=== PATIENT | male | born 1940 | race Asian ===

== ENCOUNTER 2019-06-02 18:10 | Emergency (ER) | payer MEDICARE, OTHER ==
[~2019-06-02] VITALS: Ht 170.2 cm; Wt 68.2 kg
[~2019-06-02 18:10] MED LIST: AMLO5TAB9 PO; ASPI-556 PO; CELE200 PO; METF-961 PO; SILD25 PO
[2019-06-02] MEDS ORDERED: SODIUM CHLORIDE 0.9% 1,000 ML IV ONE (18:45)
[2019-06-02 18:59] LABS: BASOPHILS % (AUTO) 0.2 % (0.0-2.0); EOSINOPHILS % (AUTO) 1.6 % (1.0-6.0); HEMATOCRIT 38.4 % (41-53); HEMOGLOBIN 12.7 g/dL (13.5-17.5); LYMPHOCYTES # (AUTO) 1.5 K/uL (1.0-4.8); LYMPHOCYTES % (AUTO) 18.5 % (22.0-44.0); MEAN CORPUSCULAR HEMOGLOBIN 31.5 pg (26.0-34.0); MEAN CORPUSCULAR HGB CONC 33.2 G/dL (31.0-37.0); MEAN CORPUSCULAR VOLUME 95 fL (80-100); MONOCYTES # (AUTO) 0.8 K/uL (0.1-1.0); MONOCYTES % (AUTO) 9.8 % (2.0-9.0); NEUTROPHILS # (AUTO) 5.8 K/uL (1.8-7.7); NEUTROPHILS % (AUTO) 69.9 % (40.0-70.0); PLATELET COUNT (AUTO) 157 K/uL (150-450); RED BLOOD CELL COUNT(AUTO) 4.04 MIL/uL (4.50-5.90); RED CELL DISTRIBUTION WIDTH 13.8 % (11.5-14.5)
[2019-06-02] MEDS ORDERED: HYDR10TA31 PO (19:02)
[2019-06-02] MEDS ORDERED: METF-463 PO (19:02)
[2019-06-02] MEDS ORDERED: LOSA25TA71 PO (19:02)
[2019-06-02] MEDS ORDERED: CARV3 PO (19:02)
[2019-06-02] MEDS ORDERED: AMLO2.5T4 PO (19:02)
[2019-06-02 19:15] LABS: CREATININE 1.36 mg/dL (0.60-1.30); POTASSIUM 4.1 mmol/L (3.5-5.1)
[2019-06-02 20:18] VITALS: BP 111/56
== END 2019-06-02 21:31 | disposition home or self-care (01) ==
LOC: EMS 18:10
DX: R55 Syncope and collapse (principal); I11.9 Hypertensive heart disease without heart failure; E78.00 Pure hypercholesterolemia, unspecified; E11.9 Type 2 diabetes mellitus without complications
CPT/HCPCS: 36415; 71045; 80048; 82948; 85025; 93005; 96360; 99285; J7030

== ENCOUNTER 2021-04-23 18:12 | Emergency (ER) | payer MEDICARE, OTHER ==
[~2021-04-23] VITALS: Ht 170.2 cm; Wt 71.4 kg
[~2021-04-23 18:12] MED LIST changes: +AMLO2.5T96 PO; -AMLO5TAB9 PO; +CARV3 PO; -CELE200 PO; +HYDR10TA31 PO; +LOSA-381 PO; +METF-911 PO; -METF-961 PO; -SILD25 PO
[2021-04-23] MEDS ORDERED: LIDOCAINE 5% TRANSDERMAL PATCH TD ONE (19:00)
[2021-04-23] MEDS ORDERED: KETOROLAC TROMETHAMINE 30 MG/ML VIAL IM ONE (19:00)
[2021-04-23] MEDS ORDERED: CYCLOBENZAPRINE HCL 10 MG TABLET PO ONE (19:00)
[2021-04-23] MEDS ORDERED: IBUP-2070 PO (19:43)
[2021-04-23] MEDS ORDERED: CYCL10TA17 PO (19:44)
[2021-04-23 19:50] VITALS: BP 131/75
== END 2021-04-23 20:41 | disposition home or self-care (01) ==
LOC: EMS 18:14
DX: M43.6 Torticollis (principal); E11.9 Type 2 diabetes mellitus without complications; I11.9 Hypertensive heart disease without heart failure; E78.00 Pure hypercholesterolemia, unspecified; Z95.0 Presence of cardiac pacemaker; Z79.82 Long term (current) use of aspirin
CPT/HCPCS: 82962; 96372; 99283; J1885